=== PATIENT | male | born 1955 | race Caucasian/White ===

== ENCOUNTER 2020-11-24 19:09 | Inpatient (IN) | payer MEDICARE, OTHER ==
[~2020-11-24] VITALS: Ht 167.6 cm; Wt 65.8 kg
--- NOTE | 2020-11-24 19:28 | NUR ---
BIBRA FROM SNF TO ER BED 5. AWAKE BUT NON VERBAL. TACHYPNEIC. BED BOUND. BROUGHT IN FOR HYPOXIA. REPORTED @ 77% ON RA. PLACED N O2 VIA NON REBREATHER, SATTING @ 100%. PT IS NOTED WITH COLOSTOMY AND NEPHROSTOMY TUBE. PT ALSO HAVE DASILVA CATH. WAS AT THE BEDSIDE FOR EVAL. ORDERS RECEICVED, NOTED AND CARRIED OUT.
[2020-11-24] MEDS ORDERED: IV NS 0.9% 1,000 ML BAG IV ONE (19:30)
[2020-11-24 19:43] LABS: ABG BASE EXCESS -3.5 mmol/L; ABG OXYGEN SATURATION 98.7 % (92.0-98.5); ABG PCO2 39.7 mmHg (35.0-45.0); ABG PH 7.355 (7.350-7.450); ABG PO2 244.9 mmHg (75.0-100.0); AaDO2 428.4 mmHg; COHb 0.3 % (0.5-1.5); MetHb 0.5 % (0.0-1.5); O2Hb 97.9 % (94.0-97.0); SITE, ABG Left Radial; VENT MODE, BG NON REBREATHER
[2020-11-24 20:20] LABS: BASOPHILS # (AUTO) 0.1 /CMM (0.0-0.2); BASOPHILS % (AUTO) 0.7 % (0.0-2.0); EOSINOPHILS % (AUTO) 2.4 % (0.0-6.0); HEMATOCRIT 29 % (39-51); HEMOGLOBIN 9.3 g/dL (13.5-17.5); LYMPHOCYTES # (AUTO) 1.7 /CMM (0.8-4.8); LYMPHOCYTES % (AUTO) 13.6 % (20.0-44.0); MEAN CORPUSCULAR HGB CONC 32 g/dl (31.0-36.0); MEAN CORPUSCULAR VOLUME 86 fL (80-96); MONOCYTES # (AUTO) 0.5 /CMM (0.1-1.30); MONOCYTES % (AUTO) 4.4 % (2.0-12.0); NEUTROPHILS # (AUTO) 9.8 /CMM (1.8-8.9); NEUTROPHILS % (AUTO) 78.9 % (43.0-81.0); PLATELET COUNT (AUTO) 270 /CMM (150-450); RED BLOOD CELL COUNT(AUTO) 3.37 MIL/uL (4.5-6.0); WHITE BLOOD COUNT (AUTO) 12.5 K/uL (4.3-11.0)
[2020-11-24 20:29] LABS: CALCIUM, SERUM 8.3 mg/dL (8.5-10.1); POTASSIUM 3.4 mmol/L (3.5-5.1)
[2020-11-24 20:29] LABS: BILIRUBIN,URINE Negative (NEGATIVE); COLOR,URINE YELLOW (YELLOW); LEUKOCYTE ESTERASE ,URINE Trace (NEGATIVE); NITRITE, URINE Negative (NEGATIVE); PH,URINE 5.5 (5.0-8.0); PROTEIN,URINE 30 mg/dl (NEGATIVE); UGLUCOSE Negative (NEGATIVE); UROBILINOGEN,URINE 0.2 EU/dL (0.2)
[2020-11-24] MEDS ORDERED: VANCOMYCIN 1 GM in IV D5W 250 ML IV ONE (20:30)
[2020-11-24] MEDS ORDERED: PIPERACILLIN /TAZOBACTAM 3.375 G in IV D5W 50 ML IV ONE (20:30)
[2020-11-24] MEDS ORDERED: VANCOMYCIN 1 GM VIAL ONE (20:31)
[2020-11-24] MEDS ORDERED: PIPERACILLIN /TAZOBACTAM 3.375 G VIAL IV ONE (20:31)
[2020-11-24 20:35] LABS: ALBUMIN 2.4 g/dL (3.4-5.0); BILIRUBIN,DIRECT 0.1 mg/dL (0.0-0.2); BILIRUBIN,TOTAL 0.3 mg/dL (0.2-1.0); TOTAL PROTEIN, SERUM 7.6 g/dL (6.4-8.2)
[2020-11-24 20:49] LABS: BACTERIA,URINE 2+ /HPF (None Seen); MUCUS,URINE Few /LPF (None Seen); SQUAMOUS EPITHELIAL CELL,UR Few /HPF (None Seen); URINE AMORPHOUS URATE Moderate /HPF (None Seen); YEAST,URINE Moderate /HPF (None Seen)
[2020-11-24] MEDS ORDERED: IV NS 0.9% 250 ML IV ONE (21:12)
[2020-11-24] MEDS ORDERED: IOHEXOL-350 100 ML VIAL IV ONE (21:12)
--- NOTE | 2020-11-24 22:05 | NUR ---
Anoop chaudhry in ED - 11/24/20 at 2221 by VIRGILIO Pt transported to [facility] with emt and rn at bedside w/ acls protocol. nad noted during transport.
--- NOTE | 2020-11-24 22:10 | NUR ---
report mónica macias rn for ryann
--- NOTE | 2020-11-24 22:22 | NUR ---
Pt transported to unit on gurney with emt and rn at bedside w/ acls protocol. nad noted during transport.
[2020-11-25] VITALS (7 sets, daily range): BP systolic 112–132; BP diastolic 49–79
[2020-11-25] MEDS ORDERED: ONDANSETRON HCL/PF 4 MG/2 ML VIAL IVP PRN (00:30)
[2020-11-25] MEDS ORDERED: LEVALBUTEROL HCL NEB 1.25 MG/0.5 ML VIAL.NEB NEB PRN (00:30)
[2020-11-25] MEDS: FLUCONAZOLE IN NS 100 MG in PREMIX 1 EA IV SCH ×2 (00:30→23:15)
[2020-11-25] MEDS ORDERED: ROPI2TAB7 PO (00:50)
[2020-11-25] MEDS ORDERED: HYDR-4303 PO (00:50)
[2020-11-25] MEDS ORDERED: GABA100C PO (00:50)
[2020-11-25] MEDS ORDERED: OXCA150T5 PO (00:50)
[2020-11-25] MEDS ORDERED: BACL10TA PO (00:50)
[2020-11-25] MEDS ORDERED: SERT50TA PO (00:50)
[2020-11-25] MEDS ORDERED: QUET100T PO (00:50)
[2020-11-25] MEDS ORDERED: MELA3TAB41 PO (00:50)
[2020-11-25] MEDS ORDERED: TAMS-12 PO (00:50)
[2020-11-25] MEDS: ACETAMINOPHEN 650 MG/SUPP.RECT RC PRN ×2 (01:22→20:17)
[2020-11-25] MEDS ORDERED: FLUCONAZOLE IN NS 100 ML IV ONE (02:22)
[2020-11-25] MEDS ORDERED: PIPERACILLIN /TAZOBACTAM 3.375 G in IV D5W 50 ML IV ONE (05:00)
[2020-11-25] MEDS ORDERED: PIPERACILLIN /TAZOBACTAM 3.375 G in IV D5W 50 ML IV SCH (05:00)
[2020-11-25] MEDS ORDERED: PIPERACILLIN /TAZOBACTAM 3.375 G VIAL IV ONE (06:00)
--- NOTE | 2020-11-25 06:48 | NUR ---
RN notes Admitted a 65 yr old patient at about 21:30 via a stretcher accompanied 2 staff from ER. Alert, opens eyes with tracking but non verbal. Noted with flexion on both upper and lower extremities. Has a temperature of 101.3. Tylenol suppository administered, temp went down to 100.2. Cooling measures provided. O2 sat went down to 88%, deep suctioning initiated. Able to suctioned large amount of thick secretion. Kept clean and dry. Will endorse to next shift for continuity of care.
--- NOTE | 2020-11-25 07:45 | NUR ---
TELE/RN OPENING NOTES RECEIVED PATIENT IN BED ALERT AND NON-VERBAL. PATIENT IS ON 8L OXYGEN VIA FACIAL MASK WELL. NO SIGN AND SYMPTOM OF PAIN AT NOTED AT THIS TIME. TELE MONITOR READING SINUS TACHY 106 BPM. WILL CONTINUE TO MONITOR.
[2020-11-25] MEDS: PANTOPRAZOLE 40 MG VIAL IV SCH (08:57)
[2020-11-25] MEDS: VANCOMYCIN 0.75 GM in IV D5W 250 ML IV SCH ×3 (08:58→23:34)
--- NOTE | 2020-11-25 09:09 | NUR ---
WOUND CARE CONSULT: PT PRESENTS WITH STAGE 4 SACRAL ULCER, COLOSTOMY WITH SOME SKIN IRRITATION FROM LEAKAGE OF STOOL, AND RT LATERAL ANKLE AND GREAT TOE DRY WOUNDS, PRESENT ON ADMISSION. SURGICAL AND DPM CONSULTS CALLED TO DR FERRER AND DR LOBO. RECOMMENDATIONS MADE FOR SKIN PROTECTION. DISCUSSED WITH NURSING STAFF. FIRST STEP LOW AIRLOSS MATTRESS IS ON ORDER. MD IN AGREEMENT WITH PLAN OF CARE. Addendum: 11/25/20 at 0911 by CHEPE FRANCE WNDNU Amended: Links added.
[2020-11-25] MEDS: ENOXAPARIN SODIUM 40 MG/0.4 ML DISP.SYRIN SQ SCH (09:21)
[2020-11-25] MEDS ORDERED: Z GUARD REMEDY 2 OZ OINT TP PRN (09:30)
[2020-11-25] MEDS ORDERED: IV D5/ 0.9% NACL 1,000 ML IV PRN (10:30)
--- NOTE | 2020-11-25 10:36 | NUR ---
TELE/RN NOTES DR. DAY ORDER D5NS 1L IV AT 100ML/HOUR. NOTED AND CARRIED OUT.
[2020-11-25] MEDS: PIPERACILLIN /TAZOBACTAM 3.375 G in IV D5W 100 ML IV SCH ×2 (11:01→19:18)
[2020-11-25] MEDS: Z GUARD REMEDY 2 OZ OINT TP SCH (11:02)
[2020-11-25 15:04] LABS: BASOPHILS # (AUTO) 0.1 /CMM (0.0-0.2); BASOPHILS % (AUTO) 0.3 % (0.0-2.0); EOSINOPHILS % (AUTO) 0.1 % (0.0-6.0); HEMATOCRIT 31 % (39-51); HEMOGLOBIN 9.6 g/dL (13.5-17.5); LYMPHOCYTES # (AUTO) 2.3 /CMM (0.8-4.8); LYMPHOCYTES % (AUTO) 9.3 % (20.0-44.0); MEAN CORPUSCULAR HGB CONC 32 g/dl (31.0-36.0); MEAN CORPUSCULAR VOLUME 85 fL (80-96); MONOCYTES # (AUTO) 1.2 /CMM (0.1-1.30); NEUTROPHILS # (AUTO) 20.8 /CMM (1.8-8.9); NEUTROPHILS % (AUTO) 85.3 % (43.0-81.0); PLATELET COUNT (AUTO) 310 /CMM (150-450); RED BLOOD CELL COUNT(AUTO) 3.61 MIL/uL (4.5-6.0); WHITE BLOOD COUNT (AUTO) 24.4 K/uL (4.3-11.0)
[2020-11-25] MEDS: ACETYLCYSTEINE 10% SOLN 400 MG/4 ML VIAL NEB SCH ×2 (15:09→23:19)
--- NOTE | 2020-11-25 15:17 | NUR ---
CHARGE NURSE NOTES DR. DAY NOTIFIED OF CRITICAL RESULT MAGNESIUM 1.0. ORDERED 7 GRAMS IV [1GM PER HOUR].
[2020-11-25 15:18] LABS: ALBUMIN 2.4 g/dL (3.4-5.0); BILIRUBIN,TOTAL 0.4 mg/dL (0.2-1.0); CALCIUM, SERUM 8.3 mg/dL (8.5-10.1); PHOSPHORUS 3.2 mg/dL (2.5-4.9); POTASSIUM 3.1 mmol/L (3.5-5.1); TOTAL PROTEIN, SERUM 7.8 g/dL (6.4-8.2)
--- NOTE | 2020-11-25 15:31 | NUR ---
TELE/RN NOTES MAGNESIUM 1.0 DR. DAY WAS AWARE PER AGNES CHAIR CANER.
[2020-11-25] MEDS: Magnesium 1GM/D5W 100ML PREMIX 100 ML IV SCH ×5 (15:45→23:59)
[2020-11-25 15:55] LABS: THYROID STIMULATING HORMONE 1.366 uIU/mL (0.358-3.74)
[2020-11-25] MEDS: DAKINS QUARTER STRENGTH (0.125%) 480 ML BOTTLE TOP SCH (16:23)
--- NOTE | 2020-11-25 19:27 | NUR ---
MS/RN OPENING NOTES PATIENT IS ON BED ALERT AND NON-VERBAL. PATIENT IS ON 6L OXYGEN VIA MASK SATURATION 100%. PATIENT IN NO APPARENT RESPIRATORY DISTRESS NOTED. NO IN AND SYMPTOM OF PAIN AT THIS TIME. IV ACCESS AT LEFT UPPER ARM PICC LINE WITH IV FLUID OF D5NS 1L AT 100ML/HR ON AND INFUSING WELL. SEEN AND EXAMINED BY MD WITH ORDERS MADE AND CARRIED OUT. ALL DUE MEDICATIONS WAS GIVEN. SAFETY PRECAUTIONS WAS IN PLACED. BED IN LOWEST POSITION AND LOCKED. SIDERAILS UP X2. CALL LIGHT WITHIN REACH. WILL ENDORSED TO LOG RAFTER FOR CHRIS.
[2020-11-25] MEDS: Potassium Chloride 20 MEQ in IV D5/ 0.9% NACL 1,000 ML IV PRN (20:17)
--- NOTE | 2020-11-25 20:45 | NUR ---
telecommunications line installer notes Pts noted desaturating to 81% bp of 124/47 hr 107 rr 24 temp 101.3, rt at bedside pts was put on non rebreather mask at 15 liters . Pts is full code . rapid response called, spoke to Dr hoyt made aware of pts condition with order made and carried out ,do abg stat.will continue to monitor pts.
--- NOTE | 2020-11-25 20:59 | NUR ---
telegraph and teletype operator notes abg result 60.[address] hoyt with order to transfer pts to icu d/t pts needs intubation , Dr hoyt notified er Dr emir jain .Ed auricular therapist at pts bedside .made aware of patient condition.
[2020-11-25] MEDS ORDERED: MEROPENEM 500 MG in IV NS 0.9% 50 ML IV SCH (21:00)
[2020-11-25] MEDS ORDERED: MEROPENEM 1 G in IV NS 0.9% 100 ML IV ONE (21:00)
[2020-11-25 21:07] LABS: ABG BASE EXCESS -1.1 mmol/L; ABG OXYGEN SATURATION 96.2 % (92.0-98.5); ABG PCO2 60.4 mmHg (35.0-45.0); ABG PH 7.263 (7.350-7.450); ABG PO2 93.1 mmHg (75.0-100.0); AaDO2 559.5 mmHg; COHb 0.3 % (0.5-1.5); MetHb 0.3 % (0.0-1.5); O2Hb 95.6 % (94.0-97.0); SITE, ABG Right Radial; VENT MODE, BG Ambubag 15L
[2020-11-25] MEDS ORDERED: PROPOFOL 100 ML IV PRN (21:30)
--- NOTE | 2020-11-25 21:35 | NUR ---
NOTIFIED JOSE OF PT TRANSFER TO ICU AND UPDATE ON PT CONDITION. AT THIS TIME, WISHES PT TO REMAIN FULL CODE.
--- NOTE | 2020-11-25 21:36 | NUR ---
RN NOTE PT NOTED TO BE DESATURATING, ON SIMPLE MASK 6L. O2 SAT DROPPING TO HIGH 50s. RAPID RESPONSE CALLED. RTs AT BEDSIDE. ED MD, VICENTE LOCKHART AT BEDSIDE TO ORALLY INTUBATE PT. ICU PASTER OPERATOR AT BEDSIDE. GLUCOSE TAKEN 100 BLOOD SUGAR RESULT. NOTIFIED REGIONAL PROGRAM MANAGER DR BLACK. PT TO BE TRANSFERRED TO ICU.
--- NOTE | 2020-11-25 21:58 | NUR ---
TRANSFER TO ICU REPORT GIVEN TO ED, DYE EXPERT FOR CONTINUATION OF CARE
--- NOTE | 2020-11-25 22:10 | NUR ---
RT PT PLACED ON [facility] VENT WITH NOTED SETTING POST INTUBATION DUE CRITICAL ABG LEVELS. PT INTUBATED WITH 7.0 EET @ 24CM AT LIP. POSITIVE CO2 COLOR CHANGE AND BILATERAL BREATH SOUNDS NOTED. PT TOLERATING SETTING WELL. NO SOB OR DISTRESS NOTED. ALARMS SET AND AUDIBLE. VENTS TO RED OUTLET. AMBU BAG AT [facility]. Addendum: 11/25/20 at 2219 by ALE JASSO RT Amended: Links added.
--- NOTE | 2020-11-25 22:20 | NUR ---
SHAFT REPAIRER RCD PT FROM SURVEY OPERATIONS DIRECTOR ED. PT ADMITTED W/DX RESP FAILURE; SEPSIS. PT INTUBATED 7 @ 25 W/VENT SETTINGS AC 20 450 100% +5. PT HAS LARGE AMOUNT OF THIN WHITE SECRETION. PT AWAKE HOWEVER NOT NOTED TO BE TACHYPNEIC OF ATTEMPTING TO SELF EXTUBATE; PT HAS ABNORMAL FLEXION TO BUE. RESTRAINTS REMOVED. NO INDICATION FOR PROPOFOL AT THIS TIME. APPLIED MEPILEX TO RIGHT BIG TOE AND ANKLE. SACRAL DRESSING NOTED WITH SOME REDDISH DRAINAGE ON PAD. PT WITH MULTIPLE MAGNESIUM AND ANTIBIOTIC TO BE GIVEN TONIGHT. PT PENDING FOR NEW MIDLINE PLACEMENT MIDLINE IN PLACE HAS NO BLOOD RETURN AND UNABLE TO FLUSH ONE PORT.
[2020-11-25] MEDS: IV NS 0.9% 250 ML IV PRN (22:50)
--- NOTE | 2020-11-25 23:34 | NUR ---
BIOINFORMATICS ASSISTANT NON ADMIN VANCO PER VANCO TROUGH LEVEL 27.
--- NOTE | 2020-11-25 23:40 | NUR ---
ANESTHESIOLOGY MEDICAL DOCTOR FI O2 DECREASED TO 70% BY RT AFTER ABG RESULSTS; PH 7.372 PO2 192.3 PCO2 43.9 AND HCO3 24.9.
[2020-11-25 23:43] LABS: ABG BASE EXCESS -0.4 mmol/L; ABG OXYGEN SATURATION 99.2 % (92.0-98.5); ABG PCO2 43.9 mmHg (35.0-45.0); ABG PH 7.372 (7.350-7.450); ABG PO2 192.3 mmHg (75.0-100.0); AaDO2 476.8 mmHg; COHb 0.3 % (0.5-1.5); MetHb 0.2 % (0.0-1.5); O2Hb 98.7 % (94.0-97.0); PEEP,BG 5 cm H2O; SITE, ABG Right Brachial; VENT MODE, BG AC 20/450/100/+5; VT, ABG 450 mL
[2020-11-26] VITALS (49 sets, daily range): BP systolic 85–119; BP diastolic 39–67
[2020-11-26] MEDS: Magnesium 1GM/D5W 100ML PREMIX 100 ML IV SCH ×3 (00:59→02:06)
[2020-11-26] MEDS: MEROPENEM 1 G in IV NS 0.9% 100 ML IV SCH ×3 (04:00→20:09)
[2020-11-26 05:06] LABS: BASOPHILS # (AUTO) 0.1 /CMM (0.0-0.2); BASOPHILS % (AUTO) 0.3 % (0.0-2.0); HEMATOCRIT 30 % (39-51); LYMPHOCYTES # (AUTO) 1.7 /CMM (0.8-4.8); LYMPHOCYTES % (AUTO) 7.3 % (20.0-44.0); MEAN CORPUSCULAR HGB CONC 33 g/dl (31.0-36.0); MEAN CORPUSCULAR VOLUME 84 fL (80-96); MONOCYTES # (AUTO) 1.3 /CMM (0.1-1.30); MONOCYTES % (AUTO) 5.6 % (2.0-12.0); NEUTROPHILS # (AUTO) 19.5 /CMM (1.8-8.9); NEUTROPHILS % (AUTO) 86.8 % (43.0-81.0); PLATELET COUNT (AUTO) 272 /CMM (150-450); RED BLOOD CELL COUNT(AUTO) 3.62 MIL/uL (4.5-6.0); WHITE BLOOD COUNT (AUTO) 22.5 K/uL (4.3-11.0)
[2020-11-26 05:30] LABS: CALCIUM, SERUM 8.2 mg/dL (8.5-10.1); CREATININE 1.2 mg/dL (0.6-1.3); MAGNESIUM 2.2 mg/dL (1.8-2.4); PHOSPHORUS 2.9 mg/dL (2.5-4.9)
--- NOTE | 2020-11-26 07:05 | NUR ---
RN NOTES RECEIVED PT ON BED, INTUBATED, CLAM AND COOPERATIVE , NO DISTRESS NOTED , OPENS EYES TO VERBAL COMMAND, ET TUBE CARE DONE, ON TELE SR HR IN 80'S .DASILVA DRAINING TO GRAVITY, IVF AT 70CC/HR RUNNING, SR UP x3, CALL LIGHT WITHIN EASY REACH, BED LOCKED AND IN LOWEST POSITION, CONTINUE TO MONITOR .
[2020-11-26] MEDS: ACETYLCYSTEINE 10% SOLN 400 MG/4 ML VIAL NEB SCH ×3 (07:49→23:21)
[2020-11-26] MEDS: VANCOMYCIN 0.75 GM in IV D5W 250 ML IV SCH ×2 (08:00→17:10)
[2020-11-26] MEDS: PANTOPRAZOLE 40 MG VIAL IV SCH (08:07)
[2020-11-26] MEDS: ENOXAPARIN SODIUM 40 MG/0.4 ML DISP.SYRIN SQ SCH (08:10)
[2020-11-26] MEDS: DAKINS QUARTER STRENGTH (0.125%) 480 ML BOTTLE TOP SCH (08:11)
[2020-11-26] MEDS: Z GUARD REMEDY 2 OZ OINT TP SCH (08:12)
[2020-11-26] MEDS ORDERED: VECURONIUM 10 MG VIAL IV ONE (10:26)
[2020-11-26] MEDS ORDERED: FEE EMEERGENCY 1 MIN EA MC ONE (10:26)
[2020-11-26] MEDS ORDERED: ETOMIDATE 2 MG/ML VIAL IV ONE (10:26)
[2020-11-26] MEDS ORDERED: POTASSIUM CHLORIDE 20 MEQ POWDER PACKET PO ONE (11:00)
[2020-11-26] MEDS: IPRATROPIUM NEB FS 0.5 MG/2.5 ML AMPUL.NEB NEB SCH ×4 (11:30→23:21)
[2020-11-26] MEDS: ALBUTEROL HALF STRENGTH 1.25 MG/3 ML VIAL.NEB NEB SCH ×4 (11:30→23:21)
--- NOTE | 2020-11-26 12:00 | NUR ---
RN NOTES PT CALM AND COOPERATIVE, ET CARE DONE, CONTINUE TO MONITOR .
[2020-11-26] MEDS: FLUCONAZOLE IN NS 100 MG in PREMIX 1 EA IV SCH (13:11)
[2020-11-26] MEDS: Potassium Chloride 20 MEQ in IV D5/ 0.9% NACL 1,000 ML IV PRN (13:13)
[2020-11-26] MEDS ORDERED: VANCOMYCIN 0.75 GM in IV D5W 250 ML IV SCH (16:00)
--- NOTE | 2020-11-26 18:00 | NUR ---
RN NOTES PT REMAINS INTUBATED , TOLERAING VENT SETTING WELL, O2 SAT WNL, FOLLOW SIMPLE COMMAND AT TIMES, IVF AT 70CC/HR RUNNING, SR UP x3, CALL LIGHT WITHIN EASY REACH, BED LOCKED AND IN LOWEST POSITION, WILL ENDOSE TO OPERATION AGENT NURSE FOR CONTINUITY OF CARE .
--- NOTE | 2020-11-26 18:16 | NUR ---
RT end of the shift report, Pt. 65 y old Male rec. orally intubated beginning of the shift. ( ETT # 7.0 @ 24 cm lip line ) on Vent with noted ( AC, RR 20, VT 450, FIO2 50%, PEEP +5 ) settings, alarms are set and functional. equal chest rise noted, vent plugged into red outlet, Ambu bag remain at the bedside. B/s bilaterally rales, sux'd for small amt. of white secretions, new tx's added and given inline no adverse reaction noted. Per Dr. Holland at the bedside. Possibly will try weaning anh. per Dr. Holland. HME changed, TEST MANAGER done, pt. remain stable and continue to monitor. reporet will pass to PM shift. Addendum: 11/26/20 at 1822 by ELIUD LEAL RT Amended: Links added.
--- NOTE | 2020-11-26 19:05 | NUR ---
RECEIVED PT ON BED AWAKE, EYES OPEN, INTUBATED WITHH ETT 7/24 CM,WITH VENT SETTING ORDER FIO2 40% SPO2 98% TOLERATING WELL NO SIGN AND SYMPTOMS OF RESPIRATORY DISTRESS, CAN ANSWER YES/NO ON SIMPLE QUESTION, PT IS CONTRACTED, ON BEDSIDE MONITOR READS SINUS RHYTHM 80-90 HAVE LAHAND # 24 AND LEFT EJ 24 PATENT AND FLUSHED HAVE LEFT UPPER ARM MIDLINE ON PORT OCCLUDED ONE IS PATENT AND FLUSHED, WITH ONGOING D5NS+20 MEQ KCL RUNNING@ 70ML/HR INFUSING WELL, BED AT LOWEST POSITION AND LOCKED SIDE RAILS UP X2 CALL LIGHT WITHIN REACH WILL CONT TO MONITOR Addendum: 11/26/20 at 1942 by WILBER SARMIENTO RN PT HAVE DASILVA CATHETER DRAINING WITH YELLOW URINE VIA GRAVITY AND COLOSTOMY BAG
--- NOTE | 2020-11-26 19:25 | NUR ---
RT Pt received orally intubated on mechanical ventilation with noted settings. Vent is plugged into red outlet with BVM by bedside. Alarms are set and audible. Equal bilateral breath sounds and chest rise noted. No SOB or respiratory distress noted at this time. Addendum: 11/26/20 at 1953 by KAYODE MALLORY RT Amended: Links added.
--- NOTE | 2020-11-26 20:23 | NUR ---
RT ET tube advanced 2cm per Dr. Holland orders. ET tube is now at 26cm at the lip line. Equal bilateral breath sounds and chest rise noted. No SOB or respiratory distress noted. RN notified and aware. Addendum: 11/26/20 at 2025 by KAYODE MALLORY RT Amended: Links added.
[2020-11-27] VITALS (43 sets, daily range): BP systolic 85–144; BP diastolic 41–87
--- NOTE | 2020-11-27 00:16 | NUR ---
REPORTED TO ONCALL DR BLACK ABOUT THE LOW URINE OUTPUT OF THE PT SINCE 1899 WITH ORDER TO GIVE NS 500ML X1 THEN AFTER THE BOLUS GIVE BUMEX 1 MG IV X 1 NOTED AND CARRIED OUT
[2020-11-27] MEDS ORDERED: BUMETANIDE INJ 0.25 MG/ML VIAL IV ONE (00:30)
[2020-11-27] MEDS ORDERED: IV NS 0.9% 500 ML IV ONE (00:30)
[2020-11-27] MEDS: ALBUTEROL HALF STRENGTH 1.25 MG/3 ML VIAL.NEB NEB SCH ×7 (03:05→23:30)
[2020-11-27] MEDS: IPRATROPIUM NEB FS 0.5 MG/2.5 ML AMPUL.NEB NEB SCH ×7 (03:05→23:30)
[2020-11-27] MEDS: ACETAMINOPHEN 650 MG/SUPP.RECT RC PRN (03:41)
[2020-11-27] MEDS: Potassium Chloride 20 MEQ in IV D5/ 0.9% NACL 1,000 ML IV PRN ×2 (04:31→17:30)
[2020-11-27] MEDS: MEROPENEM 1 G in IV NS 0.9% 100 ML IV SCH ×3 (04:31→20:30)
[2020-11-27 04:50] LABS: BASOPHILS % (AUTO) 0.3 % (0.0-2.0); EOSINOPHILS % (AUTO) 0.3 % (0.0-6.0); HEMATOCRIT 22 % (39-51); HEMOGLOBIN 7.3 g/dL (13.5-17.5); LYMPHOCYTES # (AUTO) 1.2 /CMM (0.8-4.8); LYMPHOCYTES % (AUTO) 8.8 % (20.0-44.0); MEAN CORPUSCULAR HGB CONC 33 g/dl (31.0-36.0); MEAN CORPUSCULAR VOLUME 83 fL (80-96); MONOCYTES # (AUTO) 0.8 /CMM (0.1-1.30); MONOCYTES % (AUTO) 5.7 % (2.0-12.0); NEUTROPHILS % (AUTO) 84.9 % (43.0-81.0); PLATELET COUNT (AUTO) 247 /CMM (150-450); RED BLOOD CELL COUNT(AUTO) 2.65 MIL/uL (4.5-6.0); WHITE BLOOD COUNT (AUTO) 14.2 K/uL (4.3-11.0)
[2020-11-27 05:09] LABS: CALCIUM, SERUM 8.3 mg/dL (8.5-10.1); CREATININE 1.2 mg/dL (0.6-1.3); PHOSPHORUS 2.3 mg/dL (2.5-4.9)
[2020-11-27 05:18] LABS: POTASSIUM 2.5 mmol/L (3.5-5.1)
--- NOTE | 2020-11-27 05:30 | NUR ---
REPORTED TO DR. BLACK ABOUT THE CRITICAL LAB K+ 2.5 WITH ORDER OF 40MEQ KCL VIA NGTUBE + 20 MEQ KCL IV NOTED AND CARRIED OUT
[2020-11-27] MEDS ORDERED: POTASSIUM CHLORIDE 20 MEQ POWDER PACKET GT SCH ×2 (06:00)
[2020-11-27] MEDS: POTASSIUM CL. PREMIX PERIPHER. 50 ML IV SCH ×2 (06:02→07:02)
[2020-11-27] MEDS ORDERED: POTASSIUM CHLORIDE 20 MEQ POWDER PACKET GT ONE (06:30)
--- NOTE | 2020-11-27 06:49 | NUR ---
LATEST TEMP IS 99.2,
--- NOTE | 2020-11-27 07:30 | NUR ---
RN OPENING NOTES RECEIVED PATIENT AWAKE ALERT AND FOLLOWS INSTRUCTIONS. ORALLY INTUBATED WITH MECHVENT SETTINGS OF AC 20 TV 450 FIO2 40% PEEP 5. OGT IN PLACE. NSR ON TELE MONITOR. COLOSTOMY NOTED AND DASILVA DRAINING BY GRAVITY. LEFT MIDLINE WITH D5NS+20KCL AT 70ML/HR, PERIPHERAL LINES INTACT WITH 10MEQ KCL AT 50ML/HR AT LEFT HAND. SAFETY CHECKS IN PLACE. WILL CONTINUE TO MONITOR.
[2020-11-27] MEDS ORDERED: DC PROPOFOL WHEN EXTUBATED XX PRN (08:00)
[2020-11-27] MEDS: ACETYLCYSTEINE 10% SOLN 400 MG/4 ML VIAL NEB SCH (08:06)
[2020-11-27] MEDS: DAKINS QUARTER STRENGTH (0.125%) 480 ML BOTTLE TOP SCH (08:09)
[2020-11-27] MEDS: PANTOPRAZOLE 40 MG VIAL IV SCH (08:09)
[2020-11-27] MEDS: Z GUARD REMEDY 2 OZ OINT TP SCH (08:09)
[2020-11-27] MEDS: ENOXAPARIN SODIUM 40 MG/0.4 ML DISP.SYRIN SQ SCH (08:12)
[2020-11-27] MEDS: ACETAMINOPHEN 650 MG/20.3 ML UDC NG PRN (09:10)
[2020-11-27 09:40] LABS: PEEP,BG 5 cm H2O; SITE, ABG Left Radial
[2020-11-27 10:08] LABS: ABG BASE EXCESS -1.9 mmol/L; ABG OXYGEN SATURATION 89.5 % (92.0-98.5); ABG PCO2 30.4 mmHg (35.0-45.0); ABG PH 7.465 (7.350-7.450); ABG PO2 54.7 mmHg (75.0-100.0); AaDO2 123.5 mmHg; COHb 0.2 % (0.5-1.5); MetHb 0.2 % (0.0-1.5); O2Hb 89.1 % (94.0-97.0); VT, ABG 500 mL
--- NOTE | 2020-11-27 11:35 | NUR ---
RN NOTE PATIENT WAS EXTUBATED. NO STRIDOR, NIT IN ANY RESPIRATORY DISTRESS. PLACED ON 4L NC SATURATING 100%.
[2020-11-27] MEDS: POTASSIUM PHOSPHATE MM 7.5 MMOL in IV NS 0.9% 100 ML IV SCH ×2 (12:02→15:28)
[2020-11-27 12:23] LABS: BASOPHILS # (AUTO) 0.1 /CMM (0.0-0.2); BASOPHILS % (AUTO) 0.6 % (0.0-2.0); EOSINOPHILS % (AUTO) 0.7 % (0.0-6.0); HEMATOCRIT 21 % (39-51); HEMOGLOBIN 7.1 g/dL (13.5-17.5); LYMPHOCYTES # (AUTO) 1.4 /CMM (0.8-4.8); LYMPHOCYTES % (AUTO) 9.8 % (20.0-44.0); MEAN CORPUSCULAR HGB CONC 33 g/dl (31.0-36.0); MEAN CORPUSCULAR VOLUME 83 fL (80-96); MONOCYTES # (AUTO) 0.9 /CMM (0.1-1.30); MONOCYTES % (AUTO) 6.2 % (2.0-12.0); NEUTROPHILS # (AUTO) 11.5 /CMM (1.8-8.9); NEUTROPHILS % (AUTO) 82.7 % (43.0-81.0); PLATELET COUNT (AUTO) 241 /CMM (150-450); RED BLOOD CELL COUNT(AUTO) 2.58 MIL/uL (4.5-6.0); WHITE BLOOD COUNT (AUTO) 13.9 K/uL (4.3-11.0)
[2020-11-27] MEDS: FLUCONAZOLE IN NS 100 MG in PREMIX 1 EA IV SCH (13:54)
--- NOTE | 2020-11-27 15:08 | NUR ---
RT note shift report, Pt. 65 Y old Male rec. orally intubated beginning of the AM shift. ( ETT # 7.0 @ 26 cm lip line ) HME changed, RADIATOR CLEANER done, pt. remain stable and continue to monitor. on Vent with noted ( AC, RR 20, VT 450, FIO2 50%, PEEP +5 ) settings, alarms are set and functional. equal chest rise noted, vent plugged into red outlet, Ambu bag remain at the bedside. B/s bilaterally rales, Sux'd for mod. amt. of white thin secretions, @[address] Nino at the bedside. x2 RT & RN @bedside Pt. extubated and placed on 4l/min n/c spo2 100% no stridor noted and pt. speaks and no sign of distress nor complain of pain. MM tx's d/c and Albu+Atro Tx's hold per Dr. Nino until PCR clearance, report will pass to PM shift. Addendum: 11/27/20 at 1511 by ELIUD LEAL RT Amended: Links added. Addendum: 11/27/20 at 1819 by ELIUD LEAL RT (( AT 0806 AM PT.PLACED ON SIMV WEANING MODE PER DR. NINO POST ABG DONE RESULTS GIVEN TO DR. NINO ))
--- NOTE | 2020-11-27 15:30 | NUR ---
RN NOTE RIGHT MIDLINE PLACED BY TATIANA HARRISON AND HE MENTIONED LEFT MIDLINE CAN BE REMOVED ON PT DISCHARGE WHILE KEEPING THE RIGHT MIDLINE. LEFT IJ PERIPHERAL LINE REMOVED.
[2020-11-27] MEDS: VANCOMYCIN 0.75 GM in IV D5W 250 ML IV SCH (17:29)
--- NOTE | 2020-11-27 18:53 | NUR ---
RN CLOSING NOTES PATIENT IS A&0 X2. SATURATING 99% ON 4L NC. NOT IN ANY RESPIRATORY DISTRESS. NSR 80 ON TELE MONITOR. EMPTIED 150MLS FROM COLOSTOMY AND DASILVA DRAINED 500MLS BY GRAVITY. RIGHT MIDLINE WITH D5NS+20KCL AT 70ML/HR, LEFT MIDLINE WITH TKO IN PROGRESS. SAFETY CHECKS IN PLACE. WILL ENDORSE TO NIGHT RN FOR CONTINUITY OF CARE.
[2020-11-27] MEDS: IV NS 0.9% 250 ML IV PRN (20:30)
--- NOTE | 2020-11-27 23:57 | NUR ---
RT Notes Pt received on nasal cannula on 4LPM O2. Albu+Atro Tx's on hold per Dr. Holland until PCR results. No signs of resp distress/SOB noted.
[2020-11-28] VITALS (21 sets, daily range): BP systolic 123–154; BP diastolic 46–78
[2020-11-28] MEDS: IPRATROPIUM NEB FS 0.5 MG/2.5 ML AMPUL.NEB NEB SCH ×6 (03:30→23:29)
[2020-11-28] MEDS: ALBUTEROL HALF STRENGTH 1.25 MG/3 ML VIAL.NEB NEB SCH ×6 (03:30→23:29)
[2020-11-28] MEDS: MEROPENEM 1 G in IV NS 0.9% 100 ML IV SCH ×3 (04:00→23:46)
[2020-11-28 04:19] LABS: BASOPHILS # (AUTO) 0.1 /CMM (0.0-0.2); BASOPHILS % (AUTO) 0.9 % (0.0-2.0); EOSINOPHILS % (AUTO) 2.1 % (0.0-6.0); HEMATOCRIT 23 % (39-51); HEMOGLOBIN 7.4 g/dL (13.5-17.5); LYMPHOCYTES # (AUTO) 1.8 /CMM (0.8-4.8); LYMPHOCYTES % (AUTO) 13.9 % (20.0-44.0); MEAN CORPUSCULAR HGB CONC 33 g/dl (31.0-36.0); MEAN CORPUSCULAR VOLUME 84 fL (80-96); MONOCYTES # (AUTO) 0.8 /CMM (0.1-1.30); MONOCYTES % (AUTO) 6.6 % (2.0-12.0); NEUTROPHILS # (AUTO) 9.8 /CMM (1.8-8.9); NEUTROPHILS % (AUTO) 76.5 % (43.0-81.0); PLATELET COUNT (AUTO) 242 /CMM (150-450); RED BLOOD CELL COUNT(AUTO) 2.67 MIL/uL (4.5-6.0); WHITE BLOOD COUNT (AUTO) 12.8 K/uL (4.3-11.0)
[2020-11-28 04:33] LABS: CALCIUM, SERUM 8.4 mg/dL (8.5-10.1); CREATININE 1.1 mg/dL (0.6-1.3); MAGNESIUM 1.7 mg/dL (1.8-2.4); PHOSPHORUS 2.7 mg/dL (2.5-4.9); POTASSIUM 3.4 mmol/L (3.5-5.1)
--- NOTE | 2020-11-28 07:35 | NUR ---
RN OPENING NOTES RECEIVED PATIENT AWAKE ALERT AND FOLLOWS INSTRUCTIONS. NOT IN ANY RESPIRATORY DISTRESS AND SATURATING 99% ON 4L NC. NSR 88 ON TELE MONITOR. COLOSTOMY NOTED AND DASILVA DRAINING BY GRAVITY. RIGHT MIDLINE WITH D5NS+20KCL AT 70ML/HR, LEFT MIDLINE WITH VICTORINO IN PROGRESS AND PERIPHERAL LINE AT LEFT HAND. REPOSITIONED FOR COMFORT. SAFETY CHECKS IN PLACE. WILL CONTINUE TO MONITOR.
[2020-11-28] MEDS: PANTOPRAZOLE 40 MG VIAL IV SCH (08:04)
[2020-11-28] MEDS: Z GUARD REMEDY 2 OZ OINT TP SCH (08:05)
[2020-11-28] MEDS: DAKINS QUARTER STRENGTH (0.125%) 480 ML BOTTLE TOP SCH (08:05)
[2020-11-28] MEDS: Potassium Chloride 20 MEQ in IV D5/ 0.9% NACL 1,000 ML IV PRN ×2 (09:34→23:47)
--- NOTE | 2020-11-28 10:00 | NUR ---
RN NOTE PATIENT MAY HAVE PUREED DIET WITH NECTAR THICK LIQUIDS PER SPEECH THERAPIST.
--- NOTE | 2020-11-28 10:45 | NUR ---
RN NOTE CONFIRMED WITH [facility] ([id number]) THAT FLU VACCINE WAS RECEIVED BY PATIENT AT THEIR FACILITY ON 03/29/2020; AND MODERNA COVID 19 VACCINE WAS ADMINISTERED ON 06/21/2020 FIRST DOSE, AND 07/15/2020 SECOND DOSE. NO RECORDS TO SHOW AT THE FACILITY WHETHER PNEUMONIA VACCINE WAS GIVEN NOR WAS OFFERED.
[2020-11-28] MEDS: Magnesium 1GM/D5W 100ML PREMIX 100 ML IV SCH ×2 (10:53→12:01)
[2020-11-28] MEDS: ACETAMINOPHEN 650 MG/20.3 ML UDC NG PRN (12:04)
[2020-11-28] MEDS: FLUCONAZOLE IN NS 100 MG in PREMIX 1 EA IV SCH (12:55)
[2020-11-28] MEDS: PROSOURCE / PROSTAT (PYXIS) 30 ML UDC PO SCH ×2 (13:30→17:00)
[2020-11-28] MEDS: VANCOMYCIN 0.75 GM in IV D5W 250 ML IV SCH (17:06)
--- NOTE | 2020-11-28 18:54 | NUR ---
RN CLOSING NOTES PATIENT IS AWAKE ALERT AND DISORIENTED. EPISODES OF VISUAL AND AUDITORY HALLUCINATIONS. NOT IN ANY RESPIRATORY DISTRESS AND SATURATING 100% ON 4L NC. NSR 91 ON TELE MONITOR. COLOSTOMY EMPTIED 100MLS AND DASILVA DRAINED 900MLS BY GRAVITY. RIGHT MIDLINE WITH D5NS+20KCL AT 70ML/HR, LEFT MIDLINE AND PERIPHERAL LINE AT LEFT HAND IN PLACE. REPOSITIONED HIGH BACK REST. SAFETY CHECKS IN PLACE. WILL ENDORSE TO NIGHT RN FOR CONTINUITY OF CARE.
[2020-11-28] MEDS ORDERED: ALBUTEROL HALF STRENGTH 1.25 MG/3 ML VIAL.NEB ONE (19:41)
[2020-11-28] MEDS ORDERED: IPRATROPIUM NEB FS 0.5 MG/2.5 ML AMPUL.NEB ONE (19:41)
--- NOTE | 2020-11-28 23:01 | NUR ---
RT stock neb med non admin. pt in room but unable to access med from omni cell. overrode omni cell to access neb med. administered med during scheduled treatment
--- NOTE | 2020-11-28 23:28 | NUR ---
RT pt refused tx. notified evaristo, charge nurse
[2020-11-29] VITALS: BP 129/57
[2020-11-29 04:00] VITALS: BP 136/53
[2020-11-29] MEDS: IPRATROPIUM NEB FS 0.5 MG/2.5 ML AMPUL.NEB NEB SCH ×4 (04:01→15:30)
[2020-11-29] MEDS: ALBUTEROL HALF STRENGTH 1.25 MG/3 ML VIAL.NEB NEB SCH ×4 (04:01→15:30)
[2020-11-29] MEDS: MEROPENEM 1 G in IV NS 0.9% 100 ML IV SCH ×2 (05:56→13:10)
--- NOTE | 2020-11-29 06:45 | NUR ---
patient has colostomy had 75cc out colostomy incon.x1 large stool green and formed.
--- NOTE | 2020-11-29 07:20 | NUR ---
RN OPENING NOTES RECEIVED PT IN BED. AWAKE, A/O X1. ON 4L OXYGEN, O2 SAT @100%. NO SOB OR ANY S/S OF RESPIRATORY DISTRESS NOTED. SR ON TELE MONITOR. COLOSTOMY BAG AND DASILVA CATH IN PLACE. ON PUREED DIET. IV ACCESS BOTH INTACT, PATENT AND FLUSHED. D5NS + 20KCL @70MLS/HR INFUSING WELL. NO PAIN REPORTED AT THIS TIME. SACRAL WOUND NOTED, DRESSINGS DRY AND INTACT. SAFETY MEASURES IN PLACE. CALL LIGHT WITHIN REACH. BED LOCKED AND IN LOWEST POSITION WITH SIDE RAILS UP X3. HOB ELEVATED. WILL CONTINUE TO MONITOR.
[2020-11-29 08:00] VITALS: BP 142/55
[2020-11-29] MEDS: PANTOPRAZOLE 40 MG VIAL IV SCH (08:35)
[2020-11-29] MEDS: PROSOURCE / PROSTAT (PYXIS) 30 ML UDC PO SCH ×2 (08:35→13:06)
[2020-11-29] MEDS: Z GUARD REMEDY 2 OZ OINT TP SCH (08:36)
[2020-11-29] MEDS: DAKINS QUARTER STRENGTH (0.125%) 480 ML BOTTLE TOP SCH (08:36)
[2020-11-29 12:00] VITALS: BP 115/52
[2020-11-29 12:14] LABS: BASOPHILS # (AUTO) 0.1 /CMM (0.0-0.2); BASOPHILS % (AUTO) 0.8 % (0.0-2.0); EOSINOPHILS % (AUTO) 2.3 % (0.0-6.0); HEMATOCRIT 23 % (39-51); HEMOGLOBIN 7.7 g/dL (13.5-17.5); LYMPHOCYTES # (AUTO) 1.7 /CMM (0.8-4.8); LYMPHOCYTES % (AUTO) 18.9 % (20.0-44.0); MEAN CORPUSCULAR HGB CONC 33 g/dl (31.0-36.0); MEAN CORPUSCULAR VOLUME 85 fL (80-96); MONOCYTES # (AUTO) 0.7 /CMM (0.1-1.30); MONOCYTES % (AUTO) 8.4 % (2.0-12.0); NEUTROPHILS # (AUTO) 6.1 /CMM (1.8-8.9); NEUTROPHILS % (AUTO) 69.6 % (43.0-81.0); PLATELET COUNT (AUTO) 257 /CMM (150-450); RED BLOOD CELL COUNT(AUTO) 2.74 MIL/uL (4.5-6.0); WHITE BLOOD COUNT (AUTO) 8.7 K/uL (4.3-11.0)
[2020-11-29 12:46] LABS: MAGNESIUM 1.6 mg/dL (1.8-2.4); PHOSPHORUS 2.4 mg/dL (2.5-4.9); POTASSIUM 2.9 mmol/L (3.5-5.1)
[2020-11-29] MEDS: Potassium Chloride 20 MEQ in IV D5/ 0.9% NACL 1,000 ML IV PRN (13:11)
[2020-11-29] MEDS: FLUCONAZOLE IN NS 100 MG in PREMIX 1 EA IV SCH (13:38)
[2020-11-29 16:00] VITALS: BP 132/65
[2020-11-29] MEDS ORDERED: K PHOS NEUTRAL 250 MG TABLET PO ONE (17:30)
--- NOTE | 2020-11-29 17:30 | NUR ---
RN CLOSING NOTES PT DISCHARGED TO [facility]. REPORT GIVEN TO MANNY BANKS. IV ACCESS TO BE MAINTAINED. COLOSTOMY AND DASILVA CATH IN PLACE. FLU VACCINE IS UP TO DATE. PICTURES OF WOUND TAKEN AND PLACED IN CHART. PT IS CONFUSED, UNABLE TO VERBALIZE UNDERSTANDING FOR DISCHARGE INSTRUCTIONS. VS WNL. NO SOB OR ANY DISTRESS. DENIES ANY PAIN. ACCOMPANIED BY AMBULANCE CREW BACK TO [facility].
== END 2020-11-29 18:12 | DRG 871 ==
LOC: ER 19:12 → TELE1 21:43 → ICU 11-25 21:51 → TELE-TD 11-28 19:52 → TELE1 11-29 08:04
PROVIDERS: ADMIT Internal Medicine
PROC: 5A1945Z Respiratory Ventilation, 24-96 Consecutive Hours (ICD-10-PCS; principal; 2020-11-25)
PROC: 0BH18EZ Insertion of Endotracheal Airway into Trachea, Via Natural or Artificial Opening Endoscopic (ICD-10-PCS; 2020-11-25)
PROC: 05H533Z Insertion of Infusion Device into Right Subclavian Vein, Percutaneous Approach (ICD-10-PCS; 2020-11-27)
PROC: B546ZZA Ultrasonography of Right Subclavian Vein, Guidance (ICD-10-PCS; 2020-11-27)
DX: A41.9 Sepsis, unspecified organism (principal); L89.154 Pressure ulcer of sacral region, stage 4; E43 Unspecified severe protein-calorie malnutrition; G92 Toxic encephalopathy; J96.02 Acute respiratory failure with hypercapnia; J96.01 Acute respiratory failure with hypoxia; R53.2 Functional quadriplegia; J18.9 Pneumonia, unspecified organism; D68.59 Other primary thrombophilia; B37.49 Other urogenital candidiasis; J44.0 Chronic obstructive pulmonary disease with (acute) lower respiratory infection; K94.03 Colostomy malfunction; G20 Parkinson's disease; I10 Essential (primary) hypertension; M19.019 Primary osteoarthritis, unspecified shoulder; D64.9 Anemia, unspecified; E87.6 Hypokalemia; Z86.73 Personal history of transient ischemic attack (TIA), and cerebral infarction without residual deficits; N40.0 Benign prostatic hyperplasia without lower urinary tract symptoms; F09 Unspecified mental disorder due to known physiological condition; F20.9 Schizophrenia, unspecified; G90.09 Other idiopathic peripheral autonomic neuropathy; Z20.822 Contact with and (suspected) exposure to COVID-19; R65.20 Severe sepsis without septic shock; G90.9 Disorder of the autonomic nervous system, unspecified; Z68.23 Body mass index [BMI] 23.0-23.9, adult; N40.1 Benign prostatic hyperplasia with lower urinary tract symptoms; L89.526 Pressure-induced deep tissue damage of left ankle; L89.896 Pressure-induced deep tissue damage of other site; L98.8 Other specified disorders of the skin and subcutaneous tissue; M24.574 Contracture, right foot; M24.575 Contracture, left foot; M24.542 Contracture, left hand; M24.541 Contracture, right hand; Y83.8 Other surgical procedures as the cause of abnormal reaction of the patient, or of later complication, without mention of misadventure at the time of the procedure; Y82.8 Other medical devices associated with adverse incidents; Y92.129 Unspecified place in nursing home as the place of occurrence of the external cause
CPT/HCPCS: 31720; 36415; 36600; 71045-TC; 80048-TC; 80053-TC; 80061-TC; 80076-TC; 80202-TC; 81001; 82803-TC; 82962-TC; 83540-TC; 83605-TC; 83735-TC; 83880; 84100-TC; 84153-TC; 84443-TC; 84484-TC; 85025-TC; 85378-TC; 87040-TC; 87070-TC; 87081-TC; 87086-TC; 92526; 92611-TC; 94002-TC; 94003-TC; 94640-TC; 94799-TC; 99082-TC; A4216; A4217; A6253; A6403; C9113; C9803; G0378; J1450; J1650; J2185; J2543; J3370; J3475; J3480; J3490; J7030; J7040; J7042; J7050; J7060; Q9967; U0003

== ENCOUNTER 2020-12-06 15:43 | Inpatient (IN) | payer MEDICARE, OTHER ==
[~2020-12-06] VITALS: Ht 172.7 cm; Wt 63.5 kg
[~2020-12-06 15:43] MED LIST: BACL10TA PO; GABA100C PO; HYDR-4303 PO; MELA3TAB41 PO; OXCA150T5 PO; QUET100T PO; ROPI2TAB7 PO; SERT50TA PO; TAMS-12 PO
[2020-12-06] MEDS ORDERED: IV NS 0.9% 1,000 ML BAG IV ONE (16:00)
--- NOTE | 2020-12-06 16:05 | NUR ---
BIBRA FROM SNF TO ER BED 5. PT IS ALTERED. O2 O2 VIA NON REBREATHER SATTING @ 99%. BED BOUND. BROUGHT IN FOR REPORTED DESATURATION NOTED IN THE LOW 90S AT THE FACILITY. PT IS BASELINE O2 USER @ 5LPM VIA NC. WAS AT THE BEDSIDE FOR EVAL. ORDERS RECEIVED, NOTED AND CARRIED OUT. IV LINE ALREADY ESTABLISHED ON L HAND 20G, BLOOD DRAWN BY PHLEB. WILL CONTINUE TO MONITOR
[2020-12-06 16:21] LABS: BASOPHILS # (AUTO) 0.1 /CMM (0.0-0.2); BASOPHILS % (AUTO) 0.8 % (0.0-2.0); EOSINOPHILS % (AUTO) 3.5 % (0.0-6.0); HEMATOCRIT 23 % (39-51); HEMOGLOBIN 7.1 g/dL (13.5-17.5); LYMPHOCYTES % (AUTO) 15.4 % (20.0-44.0); MEAN CORPUSCULAR HGB CONC 32 g/dl (31.0-36.0); MEAN CORPUSCULAR VOLUME 85 fL (80-96); MONOCYTES # (AUTO) 0.7 /CMM (0.1-1.30); NEUTROPHILS % (AUTO) 75.3 % (43.0-81.0); PLATELET COUNT (AUTO) 526 /CMM (150-450); RED BLOOD CELL COUNT(AUTO) 2.66 MIL/uL (4.5-6.0); WHITE BLOOD COUNT (AUTO) 13.3 K/uL (4.3-11.0)
[2020-12-06] MEDS ORDERED: ACET-868 PO (16:33)
[2020-12-06] MEDS ORDERED: SENN-261 PO (16:33)
[2020-12-06] MEDS ORDERED: CRAN425C6 PO (16:33)
[2020-12-06] MEDS ORDERED: AMIN30LI2 PO (16:33)
[2020-12-06] MEDS ORDERED: QUET100T PO (16:33)
[2020-12-06] MEDS ORDERED: ZINC220C6 PO (16:33)
[2020-12-06] MEDS ORDERED: NA P133E RC (16:33)
[2020-12-06] MEDS ORDERED: BISA10SU11 RC (16:33)
[2020-12-06] MEDS ORDERED: OMEG1CAP PO (16:33)
[2020-12-06] MEDS ORDERED: MAGN400O6 PO (16:33)
[2020-12-06] MEDS ORDERED: ASCO-352 PO (16:33)
[2020-12-06] MEDS ORDERED: HYDR-4209 PO (16:33)
[2020-12-06] MEDS ORDERED: MULT-447 PO (16:33)
[2020-12-06 16:35] LABS: CARBON DIOXIDE 32 mmol/L (21-32); CHLORIDE 105 mmol/L (98-107); CREATININE 0.7 mg/dL (0.6-1.3); GLUCOSE 109 mg/dL (74-106); POTASSIUM 2.9 mmol/L (3.5-5.1); SODIUM SERUM 144 mmol/L (136-145); UREA NITROGEN, BLOOD 10 mg/dL (7-18)
[2020-12-06 16:36] LABS: ABG BASE EXCESS 6.4 mmol/L; ABG OXYGEN SATURATION 93.3 % (92.0-98.5); ABG PCO2 49.8 mmHg (35.0-45.0); ABG PO2 76.2 mmHg (75.0-100.0); AaDO2 115.5 mmHg; COHb 0.3 % (0.5-1.5); MetHb 0.8 % (0.0-1.5); O2Hb 92.3 % (94.0-97.0); SITE, ABG Left Radial; VENT MODE, BG VENTURI MASK 35%
[2020-12-06 16:37] LABS: CALCIUM, SERUM 7.8 mg/dL (8.5-10.1)
[2020-12-06 16:53] LABS: ALANINE AMINOTRANSFERASE 11 U/L (12-78); ALBUMIN 1.9 g/dL (3.4-5.0); ALKALINE PHOSPHATASE 79 U/L (46-116); ASPARTATE AMINOTRANSFERASE 17 U/L (15-37); BILIRUBIN,DIRECT 0.1 mg/dL (0.0-0.2); BILIRUBIN,TOTAL 0.2 mg/dL (0.2-1.0); TOTAL PROTEIN, SERUM 6.8 g/dL (6.4-8.2)
--- NOTE | 2020-12-06 16:58 | NUR ---
PAGED [facility].
[2020-12-06] MEDS ORDERED: VANCOMYCIN 1 GM in IV D5W 250 ML IV ONE (17:00)
[2020-12-06] MEDS ORDERED: PIPERACILLIN /TAZOBACTAM 3.375 G in IV D5W 50 ML IV ONE (17:00)
[2020-12-06 17:26] LABS: BILIRUBIN,URINE Negative (NEGATIVE); COLOR,URINE YELLOW (YELLOW); LEUKOCYTE ESTERASE ,URINE Trace (NEGATIVE); NITRITE, URINE Negative (NEGATIVE); PROTEIN,URINE 100 mg/dl (NEGATIVE); UGLUCOSE Negative (NEGATIVE); UROBILINOGEN,URINE 0.2 EU/dL (0.2)
[2020-12-06 17:36] LABS: BACTERIA,URINE Few /HPF (None Seen); SQUAMOUS EPITHELIAL CELL,UR Few /HPF (None Seen)
[2020-12-06] MEDS ORDERED: PIPERACILLIN /TAZOBACTAM 3.375 G VIAL IV ONE (17:42)
[2020-12-06] MEDS ORDERED: VANCOMYCIN 1 GM VIAL ONE (17:42)
[2020-12-06] MEDS ORDERED: MAG HYDROX/AL HYDROX/SIMETH 30 ML UDC PO PRN (19:00)
[2020-12-06] MEDS ORDERED: ALBUTEROL SULFATE INH 18 GM HFA.AER.AD IH PRN (19:00)
[2020-12-06] MEDS ORDERED: BISACODYL SUPP (10 MG) 10 MG/SUPP.RECT SUPP.RECT RC PRN (19:00)
[2020-12-06] MEDS ORDERED: Z GUARD REMEDY 2 OZ OINT TP PRN (19:00)
[2020-12-06] MEDS ORDERED: ACETAMINOPHEN 325 MG TABLET PO PRN (19:00)
[2020-12-06] MEDS ORDERED: MAGNESIUM HYDROXIDE 30 ML UDC PO PRN (19:00)
[2020-12-06] MEDS ORDERED: ONDANSETRON HCL/PF 4 MG/2 ML VIAL IVP PRN (19:00)
--- NOTE | 2020-12-06 19:55 | NUR ---
REPORT GIVEN TO JOCELYN BUSTAMANTE FOR CHRIS
[2020-12-06] MEDS ORDERED: IPRATROPIUM NEB FS 0.5 MG/2.5 ML AMPUL.NEB NEB ONE (20:00)
[2020-12-06] MEDS ORDERED: ALBUTEROL FS 2.5 MG/0.5 ML VIAL.NEB NEB PRN (20:00)
--- NOTE | 2020-12-06 20:09 | NUR ---
PT TRANSPORTED TO UNIT ON [facility] WITH EMT AND RN AT BEDSIDE W/ ACLS PROTOCOL. NAD NOTED DURING TREANSPORT.
[2020-12-06 20:30] VITALS: BP 119/93
[2020-12-06] MEDS ORDERED: ENOXAPARIN SODIUM 40 MG/0.4 ML DISP.SYRIN SQ SCH (21:00)
[2020-12-06] MEDS: BACLOFEN (10 MG) 10 MG TABLET PO SCH (21:00)
[2020-12-06 21:24] LABS: ABG BASE EXCESS 3.4 mmol/L; ABG OXYGEN SATURATION 87.3 % (92.0-98.5); ABG PCO2 47.5 mmHg (35.0-45.0); ABG PH 7.399 (7.350-7.450); ABG PO2 54.8 mmHg (75.0-100.0); AaDO2 139.5 mmHg; COHb 0.3 % (0.5-1.5); MetHb 0.1 % (0.0-1.5); SITE, ABG Left Radial; VENT MODE, BG VENTURI MASK 35%
[2020-12-06] MEDS: TAMSULOSIN 0.4 MG CAP.SR.24H PO SCH (21:49)
[2020-12-06] MEDS: SENNOSIDES 8.6 MG TABLET PO SCH (21:49)
[2020-12-06] MEDS: IV NS 0.9% 1,000 ML IV PRN (22:41)
[2020-12-07] VITALS (9 sets, daily range): BP systolic 110–126; BP diastolic 55–72
[2020-12-07] MEDS ORDERED: PIPERACILLIN /TAZOBACTAM 4.5 G in IV D5W 50 ML IV SCH
[2020-12-07] MEDS ORDERED: PIPERACILLIN /TAZOBACTAM 3.375 G VIAL IV ONE ×2 (00:47→05:09)
[2020-12-07] MEDS: ZOSYN IVPB 3.375 G in IV D5W 50ml IV SCH ×4 (01:01→17:02)
[2020-12-07] MEDS: BACLOFEN (10 MG) 10 MG TABLET PO SCH ×3 (04:19→21:00)
[2020-12-07 04:31] LABS: BASOPHILS # (AUTO) 0.1 /CMM (0.0-0.2); BASOPHILS % (AUTO) 0.5 % (0.0-2.0); LYMPHOCYTES # (AUTO) 2.1 /CMM (0.8-4.8); LYMPHOCYTES % (AUTO) 14.1 % (20.0-44.0); MEAN CORPUSCULAR HGB CONC 32 g/dl (31.0-36.0); MEAN CORPUSCULAR VOLUME 85 fL (80-96); MONOCYTES # (AUTO) 0.7 /CMM (0.1-1.30); MONOCYTES % (AUTO) 4.7 % (2.0-12.0); NEUTROPHILS # (AUTO) 11.4 /CMM (1.8-8.9); NEUTROPHILS % (AUTO) 75.7 % (43.0-81.0); PLATELET COUNT (AUTO) 456 /CMM (150-450); RED BLOOD CELL COUNT(AUTO) 2.32 MIL/uL (4.5-6.0); WHITE BLOOD COUNT (AUTO) 15.1 K/uL (4.3-11.0)
[2020-12-07 04:52] LABS: ALBUMIN 1.7 g/dL (3.4-5.0); BILIRUBIN,TOTAL 0.3 mg/dL (0.2-1.0); CALCIUM, SERUM 6.6 mg/dL (8.5-10.1); CREATININE 0.6 mg/dL (0.6-1.3); PHOSPHORUS 2.3 mg/dL (2.5-4.9); TOTAL PROTEIN, SERUM 6.1 g/dL (6.4-8.2)
[2020-12-07 04:57] LABS: HEMATOCRIT 20 % (39-51); HEMOGLOBIN 6.3 g/dL (13.5-17.5)
[2020-12-07 04:58] LABS: MAGNESIUM 0.9 mg/dL (1.8-2.4); POTASSIUM 2.5 mmol/L (3.5-5.1)
--- NOTE | 2020-12-07 05:07 | NUR ---
RECEIVED CRITICALS THIS AM K 2.9, HGB, 6.2, AND MG OF 0.9. PAGED BARB. AWAITING ORDERS.
[2020-12-07] MEDS ORDERED: VANCOMYCIN 1 GM VIAL ONE (05:08)
[2020-12-07] MEDS: Magnesium 1GM/D5W 100ML PREMIX 100 ML IV SCH ×4 (06:21→09:19)
[2020-12-07] MEDS: POTASSIUM CL. PREMIX PERIPHER. 50 ML IV SCH ×8 (06:24→12:26)
--- NOTE | 2020-12-07 06:52 | NUR ---
called patients Steffanie Castrejon to receive consent for blood transfusion. No answer left message to call back.
[2020-12-07] MEDS: VANCOMYCIN 0.75 GM in IV D5W 250 ML IV SCH ×2 (07:41→18:00)
--- NOTE | 2020-12-07 08:12 | NUR ---
WOUND CARE CONSULT: PT PRESENTS WITH SACRAL STAGE 4 ULCER AND RT FOOT/ANKLE DRY WOUNDS, PRESENT ON ADMISSION. PT NOTED TO HAVE COLOSTOMY. DR FERRER AND DR LOBO NOTIFIED OF SURGICAL AND DPM CONSULTS. RECOMMENDATIONS MADE FOR SKIN PROTECTION. DISCUSSED WITH NURSING STAFF. PT IS ON [facility] BED. IN AGREEMENT WITH PLAN OF CARE. Addendum: 12/07/20 at 0813 by CHEPE FRANCE WNDNU Amended: Links added.
[2020-12-07] MEDS: QUETIAPINE FUMARATE 100 MG TABLET PO SCH ×2 (09:00→16:36)
[2020-12-07] MEDS: ASCORBIC ACID 500 MG TABLET PO SCH (09:00)
[2020-12-07] MEDS: SERTRALINE HCL 50 MG TABLET PO SCH (09:00)
[2020-12-07] MEDS: ropiniROLE 0.5 MG TABLET PO SCH ×2 (09:00→16:36)
[2020-12-07] MEDS: GABAPENTIN 100 MG CAPSULE PO SCH ×3 (09:00→16:36)
[2020-12-07] MEDS: OXCARBAZEPINE 150 MG TABLET PO SCH ×2 (09:00→16:37)
--- NOTE | 2020-12-07 09:29 | NUR ---
RN OPENING NOTES RECEIVED PATIENT AWAKE ALERT AND APPEARS CONFUSED. SATURATING 99% ON VENTURI 9L WITH 40% FIO2. SR 62 ON TELEMETRY. COLOSTOMY NOTED AND DASILVA DRAINING BY GRAVITY. PERIPHERAL LINES ON LEFT HAND AND RIGHT FOOT. KCL AND MGSO4 INFUSIONS IN PROGRESS. SAFETY CHECKS IN PLACE. WILL CONTINUE TO MONITOR.
--- NOTE | 2020-12-07 09:36 | NUR ---
RN NOTES PO MEDS WITHHELD PENDING SWALLOW EVALUATION. KEPT NPO AT THIS TIME.
[2020-12-07 09:45] LABS: EOSINOPHILS % (MANUAL) 6 % (0-4); LYMPHOCYTES % (MANUAL) 11 % (16-48); MONOCYTES % (MANUAL) 5 % (0-11.0); NEUTROPHILS % (MANUAL) 78 (42-76)
[2020-12-07] MEDS ORDERED: POTASSIUM CHLORIDE 20 MEQ TAB.PRT.SR PO ONE (11:30)
[2020-12-07] MEDS ORDERED: Magnesium 1GM/D5W 100ML PREMIX 100 ML IV SCH (11:30)
[2020-12-07] MEDS: PANTOPRAZOLE 40 MG VIAL IV SCH (11:43)
[2020-12-07] MEDS: POTASSIUM PHOSPHATE MM 7.5 MMOL in IV NS 0.9% 100 ML IV SCH ×2 (14:24→18:39)
--- NOTE | 2020-12-07 15:14 | NUR ---
RN NOTE PATIENT COMPLETED 1 UNIT OF PRBC WITH NO ADVERSE REACTIONS.
[2020-12-07 16:26] LABS: OCCULT BLOOD STOOL NEGATIVE (NEGATIVE)
--- NOTE | 2020-12-07 16:32 | NUR ---
RN NOTE CALL RECEIVED FROM [employer] [facility]. PATIENT RESULTED (+) MRSA RIGHT NARE. BACTROBAN ORDERED.
--- NOTE | 2020-12-07 18:00 | NUR ---
RN NOTE TELEPHONE CONSENT OBTAINED FROM JOSE WU FOR PATIENT'S SERIAL DEBRIDEMENT OF SACRUM.
[2020-12-07] MEDS: DAKINS QUARTER STRENGTH (0.125%) 480 ML BOTTLE TOP SCH (18:11)
--- NOTE | 2020-12-07 18:20 | NUR ---
RN NOTE VANC TROUGH 23. PER PHARMACY, NEXT DOSE HAS BEEN ADJUSTED, AND PLS DO NOT WITHHOLD MIDNIGHT DOSE OF VANCOMYCIN.
--- NOTE | 2020-12-07 18:32 | NUR ---
RN CLOSING NOTES PATIENT REMAINS AWAKE ALERT AND APPEARS CONFUSED. UPSET MOST OF THE DAY ABOUT BEING KEPT NPO. SATURATING 98% ON VENTURI 9L WITH 40% FIO2. SR 60'S WITH PAC'S ON TELEMETRY. COLOSTOMY EMPTIED THICK SCANT STOOL, AND DASILVA DRAINED 1,050MLS THIS SHIFT. PERIPHERAL LINES ON LEFT HAND AND RIGHT FOOT. MIDLINE AT LEFT UPPER ARM WITH N/S AT 75 ML/HR AND POTASSIUM PHOSPHATE AT 35 ML/HR. SAFETY CHECKS IN PLACE. WILL ENDORSE TO NIGHT RN FOR CONTINUITY OF CARE.
--- NOTE | 2020-12-07 19:00 | NUR ---
RN NOTE RECEIVED PATIENT IN BED, CONFUSED, IN NO S/SX OF ACUTE DISTRESS AT THIS TIME. BREATHING EVEN AND UNLABORED, SATURATION AT 100% ON 40% FIO2 VIA VENTURI MASK, SR ON THE MONITOR, HR IS 70. NOTED IV SITE AT L HAND 20G, R FOOT 20G, AND CHERY MIDLINE 18G, ALL HUBS PATENT AND FLUSHING WELL, NO S/S OF INFECTION OR INFILTRATION. DASILVA CATHETER CONNECTED TO URINE BAG DRAINING TO A CLEAR, YELLOW OUTPUT. SAFETY MEASURES IMPLEMENTED. PATIENT BED ALARM IS ON. HEAD OF BED ELEVATED. BED IS LOCKED, IN LOWEST POSITION AND SIDE RAILS UP. CALL LIGHT WITHIN REACH OF THE PATIENT. WILL CONTINUE TO MONITOR AND REASSESS FOR ANY CHANGES.
--- NOTE | 2020-12-07 20:00 | NUR ---
RN NOTE TELEPHONE CALL TO LAB, SPOKE WITH MIKE, WAS ADVISED THAT 1800 DOSE WAS WITHHELD DUE TO VANCO TROUGH OF 23, BUT OK TO ADMINISTER ADJUSTED DOSE AT 12/08/2020 0000.
[2020-12-07] MEDS: IV NS 0.9% 1,000 ML IV PRN (20:09)
[2020-12-07] MEDS: TAMSULOSIN 0.4 MG CAP.SR.24H PO SCH (21:17)
[2020-12-07] MEDS: SENNOSIDES 8.6 MG TABLET PO SCH (21:17)
[2020-12-08] VITALS: BP 131/57
[2020-12-08] MEDS ORDERED: VANCOMYCIN 1 GM in IV D5W 250 ML IV SCH
[2020-12-08] MEDS: ZOSYN IVPB 3.375 G in IV D5W 50ml IV SCH ×5 (00:06→23:57)
[2020-12-08 04:00] VITALS: BP 134/61
[2020-12-08] MEDS: BACLOFEN (10 MG) 10 MG TABLET PO SCH ×3 (04:27→21:57)
[2020-12-08] MEDS: VANCOMYCIN 0.75 GM in IV D5W 250 ML IV SCH (06:03)
[2020-12-08 06:31] LABS: BASOPHILS # (AUTO) 0.1 K/uL (0.0-0.2); BASOPHILS % (AUTO) 0.9 % (0.0-2.0); EOSINOPHILS % (AUTO) 4.4 % (0.0-6.0); HEMATOCRIT 25 % (39-51); HEMOGLOBIN 8.2 g/dL (13.5-17.5); LYMPHOCYTES % (AUTO) 14.8 % (20.0-44.0); MEAN CORPUSCULAR HGB CONC 32 g/dl (31.0-36.0); MEAN CORPUSCULAR VOLUME 85 fL (80-96); MONOCYTES # (AUTO) 0.8 K/uL (0.1-1.30); MONOCYTES % (AUTO) 6.1 % (2.0-12.0); NEUTROPHILS # (AUTO) 9.9 K/uL (1.8-8.9); NEUTROPHILS % (AUTO) 73.8 % (43.0-81.0); PLATELET COUNT (AUTO) 522 K/uL (150-450); WHITE BLOOD COUNT (AUTO) 13.4 K/uL (4.3-11.0)
[2020-12-08 07:13] LABS: CALCIUM, SERUM 7.8 mg/dL (8.5-10.1); CREATININE 0.7 mg/dL (0.6-1.3); POTASSIUM 3.7 mmol/L (3.5-5.1)
--- NOTE | 2020-12-08 08:01 | NUR ---
RN NOTE RECEIVED PATIENT IN BED, CONFUSED, IN NO S/S OF ACUTE DISTRESS AT THIS TIME. BREATHING EVEN AND UNLABORED, SATURATION AT 100% ON 40% FIO2 VIA VENTURI MASK, SR ON THE MONITOR, HR IS 62 NOTED IV SITE AT L HAND 20G, , AND CHERY MIDLINE 18G, FLUSHING WELL, NO S/S OF INFECTION OR INFILTRATION. DASILVA CATHETER CONNECTED TO URINE BAG DRAINING TO A CLEAR, YELLOW OUTPUT. SAFETY MEASURES IMPLEMENTED. PATIENT BED ALARM IS ON. HEAD OF BED ELEVATED. BED IS LOCKED, IN LOWEST POSITION AND SIDE RAILS UP. CALL LIGHT WITHIN REACH OF THE PATIENT. WILL CONTINUE TO MONITOR , BED IN LOWEST AND LOCKED POSITION ,CALL LIGHT WITHIN REACH
[2020-12-08 08:07] VITALS: BP 132/51
[2020-12-08] MEDS: OXCARBAZEPINE 150 MG TABLET PO SCH ×2 (09:00→16:29)
[2020-12-08] MEDS: QUETIAPINE FUMARATE 100 MG TABLET PO SCH ×2 (09:00→16:29)
[2020-12-08] MEDS: ropiniROLE 0.5 MG TABLET PO SCH ×2 (09:00→16:29)
[2020-12-08] MEDS: SERTRALINE HCL 50 MG TABLET PO SCH (09:00)
[2020-12-08] MEDS: GABAPENTIN 100 MG CAPSULE PO SCH ×3 (09:00→16:29)
[2020-12-08] MEDS: ASCORBIC ACID 500 MG TABLET PO SCH (09:00)
--- NOTE | 2020-12-08 09:17 | NUR ---
REGISTERED NURSE FLOAT POOL NOTE SEEN BY DR BLANCO JIMENEZ TO DO VIDEO EVAL STILL NPO AT THIS TIME
[2020-12-08] MEDS: PANTOPRAZOLE 40 MG VIAL IV SCH (09:26)
[2020-12-08] MEDS: DAKINS QUARTER STRENGTH (0.125%) 480 ML BOTTLE TOP SCH (09:28)
[2020-12-08] MEDS: MUPIROCIN OINT 2% 22 GM TUBE NS SCH ×2 (09:38→21:56)
[2020-12-08] MEDS ORDERED: BARIUM SULFATE 240 ML ORAL.SUSP PO ONE (10:15)
[2020-12-08] MEDS ORDERED: BARIUM SULFATE 148 GM SUSP.RECON PO ONE (10:15)
[2020-12-08] MEDS: IV NS 0.9% 1,000 ML IV PRN ×2 (10:48→22:04)
--- NOTE | 2020-12-08 11:06 | NUR ---
RN NOTE PT. HAS RETURNED FROM VIDEO SWALLOW EVAL. PER SPEECH THERAPIST OKAY TO RESUME PUREE DIET.
[2020-12-08 12:00] VITALS: BP 110/56
--- NOTE | 2020-12-08 13:00 | NUR ---
EDWIN RN NOTE HAVING LUNCH , ABLE TO EAT LUNCH PUREE DIET 50% ,FED BY SUBSTATION SUPERVISOR , ALL NEEDS ATTENDED WILL CONT TO MONITOR
[2020-12-08 16:00] VITALS: BP 124/57
--- NOTE | 2020-12-08 16:00 | NUR ---
MS RN NOTE ROUNDS MADE , ALL NEEDS ATTENDED WITH 2L NC NO SOB NOTED ,SATURATION 99% ,ON IVF ORDERED,KEEP CLEAN DRY , TURN REPOSITION Q2 HOUR , CALL LIGHT WITHIN REACH
--- NOTE | 2020-12-08 18:54 | NUR ---
EDWIN RN NOTE PATIENT IN BED, ON 2L NC, NO SOB NOTED ,ON IVF ORDERED VIA CHERY MID LINE , BED IN LOWEST AND LOCKED POSITION, CALL LIGHT WITHIN REACH , ,WILL CONT TO MONITOR CLOSELY
--- NOTE | 2020-12-08 19:00 | NUR ---
RN NOTE RECEIVED PATIENT IN BED, CONFUSED, IN NO S/SX OF ACUTE DISTRESS AT THIS TIME. BREATHING EVEN AND UNLABORED, SATURATION AT 98% ON 2L VIA NC, SR ON THE MONITOR, HR IS 66. NOTED IV SITE AT L HAND 20G, AND CHERY MIDLINE 18G, ALL HUBS PATENT AND FLUSHING WELL, NO S/S OF INFECTION OR INFILTRATION. DASILVA CATHETER CONNECTED TO URINE BAG DRAINING TO A CLEAR, YELLOW OUTPUT. ASPIRATION PRECAUTIONS MAINTAINED. SAFETY MEASURES IMPLEMENTED. PATIENT BED ALARM IS ON. HEAD OF BED ELEVATED. BED IS LOCKED, IN LOWEST POSITION AND SIDE RAILS UP. CALL LIGHT WITHIN REACH OF THE PATIENT. WILL CONTINUE TO MONITOR AND REASSESS FOR ANY CHANGES.
[2020-12-08 20:00] VITALS: BP 103/58
--- NOTE | 2020-12-08 20:00 | NUR ---
RN NOTE NOTED BP 82/42, PLACED PATIENT ON [place], BP RECHECKED AND REVEALED 82/45, 82/48. DR DAY WAS NOTIFIED, ORDER RECEIVED FOR NS 500 ML BOLUS X 1. MACHINE SPREADER CLARIBEL TIPTON. BP RECHECKED AND REVEALED 103/58. WILL CONTINUE TO MONITOR.
[2020-12-08] MEDS ORDERED: IV NS 0.9% 500 ML IV ONE (21:30)
[2020-12-08] MEDS: SENNOSIDES 8.6 MG TABLET PO SCH (21:57)
[2020-12-08] MEDS: TAMSULOSIN 0.4 MG CAP.SR.24H PO SCH (21:57)
--- NOTE | 2020-12-08 23:30 | NUR ---
RN NOTE NOTED PATIENT COUGHING ACCOMPANIED BY GURGLING SOUND ON EXPIRATION, RT PATO NOTIFIED, PT WAS SUCTIONED, SATURATION SUSTAINED AT 97-98%, PT BREATHING BETTER. WILL CONTINUE TO MONITOR.
[2020-12-09] VITALS: BP 96/55
[2020-12-09 04:00] VITALS: BP 102/54
[2020-12-09] MEDS: BACLOFEN (10 MG) 10 MG TABLET PO SCH ×3 (05:17→22:15)
[2020-12-09] MEDS: ZOSYN IVPB 3.375 G in IV D5W 50ml IV SCH ×4 (05:17→23:15)
[2020-12-09 06:09] LABS: CALCIUM, SERUM 7.8 mg/dL (8.5-10.1); CREATININE 0.9 mg/dL (0.6-1.3); POTASSIUM 3.3 mmol/L (3.5-5.1)
--- NOTE | 2020-12-09 07:20 | NUR ---
RN OPENING NOTE RECEIVED PATIENT IN BED, CONFUSED A/O X1, IN NO S/SX OF ACUTE DISTRESS AT THIS TIME. BREATHING EVEN AND UNLABORED, ON 2L VIA NC NOTED IV SITE AT L HAND 20G, AND CHERY MIDLINE 18G, INTACT, PATENT AND FLUSHING WELL, NO S/S OF INFECTION OR INFILTRATION. DASILVA CATHETER CONNECTED TO URINE BAG DRAINING TO A CLEAR, YELLOW OUTPUT. OSTOMY BAG DRAINING WELL, . ASPIRATION PRECAUTIONS MAINTAINED. SAFETY MEASURES IMPLEMENTED. PATIENT BED ALARM IS ON. HEAD OF BED ELEVATED. BED IS LOCKED, IN LOWEST POSITION AND SIDE RAILS UP. CALL LIGHT WITHIN REACH OF THE PATIENT. WILL CONTINUE TO MONITOR
[2020-12-09 08:00] VITALS: BP 126/56
[2020-12-09] MEDS ORDERED: VANCOMYCIN 1 GM in IV D5W 250 ML IV SCH (08:00)
[2020-12-09] MEDS: PANTOPRAZOLE 40 MG VIAL IV SCH (08:17)
[2020-12-09] MEDS: GABAPENTIN 100 MG CAPSULE PO SCH ×3 (08:18→17:15)
[2020-12-09] MEDS: ASCORBIC ACID 500 MG TABLET PO SCH (08:18)
[2020-12-09] MEDS: ropiniROLE 0.5 MG TABLET PO SCH ×2 (08:19→17:15)
[2020-12-09] MEDS: SERTRALINE HCL 50 MG TABLET PO SCH (08:19)
[2020-12-09] MEDS: QUETIAPINE FUMARATE 100 MG TABLET PO SCH ×2 (08:19→17:15)
[2020-12-09] MEDS: OXCARBAZEPINE 150 MG TABLET PO SCH ×2 (08:19→17:15)
[2020-12-09] MEDS: DAKINS QUARTER STRENGTH (0.125%) 480 ML BOTTLE TOP SCH (08:20)
[2020-12-09] MEDS: MUPIROCIN OINT 2% 22 GM TUBE NS SCH ×2 (08:20→22:19)
[2020-12-09] MEDS ORDERED: POTASSIUM CHLORIDE 20 MEQ TAB.PRT.SR PO SCH (10:00)
[2020-12-09] MEDS: FLUCONAZOLE IN NS 100 MG in PREMIX 1 EA IV SCH (11:19)
[2020-12-09 12:00] VITALS: BP 105/47
[2020-12-09] MEDS ORDERED: LIDOCAINE 1%-EPI 1:100,000 50 ML VIAL IJ STA (12:01)
--- NOTE | 2020-12-09 14:00 | NUR ---
RN NOTES DEBRIDEMENT OF THE SACRAL WOUND DONE BY RAINA BRADFORD AT BEDSIDE. LIDOCAINE 20ML USED. DRESSING DRY AND INTACT.
[2020-12-09] MEDS: IV NS 0.9% 1,000 ML IV PRN (15:25)
[2020-12-09 16:00] VITALS: BP 130/54
[2020-12-09] MEDS: ENSURE ENLIVE 237 ML LIQUID (VANILLA) PO SCH (17:27)
--- NOTE | 2020-12-09 18:47 | NUR ---
RN CLOSING NOTES NO SIGNIFICANT CHANGES THROUGHOUT THE SHIFT. NO SOB OR ANY S/S OF RESPIRATORY DISTRESS. NO PAIN REPORTED AT THIS TIME. ALL DUE MEDS GIVEN. NEEDS ATTENDED. KEPT CLEAN AND DRY. SAFETY MEASURES STILL IN PLACE. WILL ENDORSE TO NIGHT RN FOR CHRIS.
[2020-12-09 20:00] VITALS: BP_SYST 141; BP_DIAS 47; BP_DIAS 77
[2020-12-09] MEDS: SENNOSIDES 8.6 MG TABLET PO SCH (22:15)
[2020-12-09] MEDS: TAMSULOSIN 0.4 MG CAP.SR.24H PO SCH (22:15)
[2020-12-10] VITALS (7 sets, daily range): BP systolic 93–136; BP diastolic 47–69
[2020-12-10] MEDS: BACLOFEN (10 MG) 10 MG TABLET PO SCH ×3 (05:38→21:54)
[2020-12-10] MEDS: ZOSYN IVPB 3.375 G in IV D5W 50ml IV SCH ×3 (05:39→18:15)
[2020-12-10] MEDS: IV NS 0.9% 1,000 ML IV PRN ×2 (05:55→22:03)
--- NOTE | 2020-12-10 06:30 | NUR ---
TELE TD: NO SIGNIFICANT CHRIS DURING THE SHIFT. ALERT AND AWAKE. ABLE TO FOLLOW SIMPLE COMMANDS. VS WITHIN PT'S BASELINE. ABLE TO TAKE PO MEDS CRUSHED AND MIXED WT APPLE SAUCE WT THICKENED LIQUIDS. ASPIRATION PRECAUTION NOTED AT ALL TIMES.
[2020-12-10 07:27] LABS: CALCIUM, SERUM 7.9 mg/dL (8.5-10.1); CREATININE 0.8 mg/dL (0.6-1.3); POTASSIUM 3.5 mmol/L (3.5-5.1)
--- NOTE | 2020-12-10 07:30 | NUR ---
RN OPENING NOTE RECEIVED PATIENT IN BED AND ASLEEP. BREATHING EVEN AND UNLABORED, ON 2L VIA NC NOTED IV SITE AT L HAND 20G, AND CHERY MIDLINE 18G, INTACT, PATENT AND FLUSHING WELL, NO S/S OF INFECTION OR INFILTRATION. DASILVA CATHETER CONNECTED TO URINE BAG DRAINING TO A CLEAR, YELLOW OUTPUT. OSTOMY BAG DRAINING WELL, . ASPIRATION PRECAUTIONS MAINTAINED, PURE AND THICK LIQUID MEALS TO BE IMPLEMENTED THROUGHOUT SHIFT. SAFETY MEASURES IMPLEMENTED. PATIENT BED ALARM IS ON. HEAD OF BED ELEVATED. BED IS LOCKED, IN LOWEST POSITION AND SIDE RAILS UP. CALL LIGHT WITHIN REACH OF THE PATIENT. NO ACUTE DISTRESS NOTED AT THIS TIME.
[2020-12-10] MEDS ORDERED: VANCOMYCIN 1 GM in IV D5W 250 ML IV SCH (08:00)
--- NOTE | 2020-12-10 08:00 | NUR ---
RN NOTE VANCOMYCIN 0800 1G DOSE HELD DUE TO TROUGH OF 26.
[2020-12-10] MEDS: QUETIAPINE FUMARATE 100 MG TABLET PO SCH ×2 (08:46→17:09)
[2020-12-10] MEDS: ASCORBIC ACID 500 MG TABLET PO SCH (08:46)
[2020-12-10] MEDS: ropiniROLE 0.5 MG TABLET PO SCH ×2 (08:46→17:09)
[2020-12-10] MEDS: SERTRALINE HCL 50 MG TABLET PO SCH (08:46)
[2020-12-10] MEDS: OXCARBAZEPINE 150 MG TABLET PO SCH ×2 (08:47→17:09)
[2020-12-10] MEDS: GABAPENTIN 100 MG CAPSULE PO SCH ×3 (08:47→17:09)
[2020-12-10] MEDS: PANTOPRAZOLE 40 MG TABLET.DR PO SCH (08:48)
[2020-12-10] MEDS: ENSURE ENLIVE 237 ML LIQUID (VANILLA) PO SCH ×4 (09:00→17:00)
[2020-12-10] MEDS: MUPIROCIN OINT 2% 22 GM TUBE NS SCH ×2 (09:22→22:11)
[2020-12-10] MEDS: FLUCONAZOLE IN NS 100 MG in PREMIX 1 EA IV SCH (11:24)
[2020-12-10] MEDS: DAKINS QUARTER STRENGTH (0.125%) 480 ML BOTTLE TOP SCH (16:28)
--- NOTE | 2020-12-10 18:37 | NUR ---
RN CLOSING NOTES PATIENT REMAINS AWAKE AND CONFUSED, A/O X 1-2. ASPIRATION PRECAUTIONS MAINTAINED THROUGHOUT FEEDS, ON PUREE THICK LIQUIDS. SUCTIONING COMPLETED NEEDED R/T PRODUCTIVE THIN SPUTUM. SATURATIONS ABOVE 95% ON NC 3L. SR 60'S ON TELEMETRY. COLOSTOMY STOOL PRODUCTION 50-60 ML. DASILVA CATHETER PATENT AND DRAINING LIGHT YELLOW URINE, 750 ML URINE EMPTIED THROUGH SHIFT. PERIPHERAL LINES ON LEFT HAND SALINE LOCKED AND MIDLINE AT LEFT UPPER ARM WITH N/S AT 75 ML/HR CLEAN AND PATENT. MEDICATIONS AND IV FLUIDS TOLERATED WELL. SAFETY PRECAUTIONS IN PLACE. PATIENT CURRENTLY RESTING IN BED. BED LOWEST POSITION, CALL LIGHT WITHIN REACH, HOB 45 DEGREES AND BED ALARM ON. NO ACUTE DISTRESS NOTED AT THIS TIME. WILL ENDORSE CONTINUITY OF CARE TO POTATO CHIP PROCESSING SUPERVISOR RN.
[2020-12-10] MEDS: TAMSULOSIN 0.4 MG CAP.SR.24H PO SCH (21:54)
[2020-12-10] MEDS: SENNOSIDES 8.6 MG TABLET PO SCH (22:04)
[2020-12-11] VITALS: BP 123/59
[2020-12-11] MEDS: ZOSYN IVPB 3.375 G in IV D5W 50ml IV SCH ×3 (00:30→11:03)
[2020-12-11 04:00] VITALS: BP 132/60
[2020-12-11] MEDS: BACLOFEN (10 MG) 10 MG TABLET PO SCH ×2 (06:14→12:23)
--- NOTE | 2020-12-11 06:18 | NUR ---
RN notes In bed resting comfortably with 60 degree up head of the bed. NO physical manifestion of pain or discomfort. Noted to have large amount of sputum, thick yellowish. No significant change of condition. Will endorse to next shift for continuity of care.
[2020-12-11 07:28] LABS: CALCIUM, SERUM 7.8 mg/dL (8.5-10.1); CREATININE 0.7 mg/dL (0.6-1.3)
--- NOTE | 2020-12-11 07:59 | NUR ---
PHARMACIST HELPER NOTE PATIENT IN BED ALERT AWAKE , ON TELE MONITOR,SR ,ON2 L NC NO SOB NOTED AT THIS TIME,BED IN LOWEST AND LOCKED POSITION ,CALL LIGHT WITHIN REACH , WILL CONT TO MONITOR
[2020-12-11 08:00] VITALS: BP 145/55
[2020-12-11] MEDS: QUETIAPINE FUMARATE 100 MG TABLET PO SCH (08:52)
[2020-12-11] MEDS: GABAPENTIN 100 MG CAPSULE PO SCH ×2 (08:52→12:23)
[2020-12-11] MEDS: SERTRALINE HCL 50 MG TABLET PO SCH (08:52)
[2020-12-11] MEDS: PANTOPRAZOLE 40 MG TABLET.DR PO SCH (08:52)
[2020-12-11] MEDS: OXCARBAZEPINE 150 MG TABLET PO SCH (08:53)
[2020-12-11] MEDS: ASCORBIC ACID 500 MG TABLET PO SCH (08:53)
[2020-12-11] MEDS: MUPIROCIN OINT 2% 22 GM TUBE NS SCH (08:53)
[2020-12-11] MEDS: DAKINS QUARTER STRENGTH (0.125%) 480 ML BOTTLE TOP SCH (08:53)
[2020-12-11] MEDS: ENSURE ENLIVE 237 ML LIQUID (VANILLA) PO SCH ×2 (08:54→12:23)
[2020-12-11] MEDS: ropiniROLE 0.5 MG TABLET PO SCH (08:58)
[2020-12-11] MEDS ORDERED: VANCOMYCIN 1 GM in IV D5W 250 ML IV SCH (09:00)
--- NOTE | 2020-12-11 09:30 | NUR ---
BAKER OPERATOR AUTOMATIC NOTE SEEN BY DR SIMEON ,BARBARA TO D\C TO SNF WILL F\U
--- NOTE | 2020-12-11 10:52 | NUR ---
JOSELUIS BANKS NOTE CALLED TO SNF , SPOKE WITH RACHEL BANKS REPORT GIVEN Addendum: 12/11/20 at 1055 by ATUL ESCUDERO RN UNABLE TO CONTACT WITH FAMILY ,NO CONTACT FAMILY AVAILABLE CHECK WITH SALES ENGAGEMENT MANAGER NO FAMILY AVAILABLE
[2020-12-11 12:00] VITALS: BP 107/52
[2020-12-11] MEDS ORDERED: FLUCONAZOLE IN NS 100 MG in PREMIX 1 EA IV SCH (13:00)
[2020-12-11] MEDS ORDERED: POTASSIUM CHLORIDE 20 MEQ POWDER PACKET PO SCH (13:30)
--- NOTE | 2020-12-11 14:10 | NUR ---
telephonic rn note rounds made, turn reposition ,cont on ivf , all needs attended ,will cont to monitor
--- NOTE | 2020-12-11 15:18 | NUR ---
teletype mechanic note ambulance arrived report given
[2020-12-11 16:00] VITALS: BP 121/46
--- NOTE | 2020-12-11 16:05 | NUR ---
HIGH MAN NOTE PATIENT TAKEN TO SNF WITH STABLE CONDITION NO BELONGING NOTED , MID LINE IN PLACE, NOS\S INFECTION ON LT UPPER ARM INSTRUCTION PAPER GIVEN TO AMBULANCE CREW
[2020-12-12] MEDS ORDERED: POTASSIUM CHLORIDE 20 MEQ POWDER PACKET GT SCH (09:00)
== END 2020-12-11 15:12 | DRG 981 ==
LOC: ER 15:43 → TELE-TD 19:38 → TELE1 12-10 09:48 → TELE-TD 12-10 09:48 → UNDODISIN 12-11 13:00 → TELE1 12-11 14:59
PROVIDERS: ADMIT Internal Medicine; ATTEND Internal Medicine
PROC: 30233N1 Transfusion of Nonautologous Red Blood Cells into Peripheral Vein, Percutaneous Approach (ICD-10-PCS; 2020-12-07)
PROC: 05HA33Z Insertion of Infusion Device into Left Brachial Vein, Percutaneous Approach (ICD-10-PCS; 2020-12-07)
PROC: 0KBN0ZZ Excision of Right Hip Muscle, Open Approach (ICD-10-PCS; principal; 2020-12-09)
PROC: 0KBP0ZZ Excision of Left Hip Muscle, Open Approach (ICD-10-PCS; 2020-12-09)
DX: J69.0 Pneumonitis due to inhalation of food and vomit (principal); L89.154 Pressure ulcer of sacral region, stage 4; J96.21 Acute and chronic respiratory failure with hypoxia; R53.2 Functional quadriplegia; G93.41 Metabolic encephalopathy; D68.59 Other primary thrombophilia; J44.0 Chronic obstructive pulmonary disease with (acute) lower respiratory infection; E44.1 Mild protein-calorie malnutrition; G10 Huntington's disease; M46.28 Osteomyelitis of vertebra, sacral and sacrococcygeal region; B37.49 Other urogenital candidiasis; Z86.73 Personal history of transient ischemic attack (TIA), and cerebral infarction without residual deficits; Z98.890 Other specified postprocedural states; F32.9 Major depressive disorder, single episode, unspecified; I10 Essential (primary) hypertension; G25.81 Restless legs syndrome; G20 Parkinson's disease; F20.9 Schizophrenia, unspecified; D64.9 Anemia, unspecified; Z79.899 Other long term (current) drug therapy; N40.0 Benign prostatic hyperplasia without lower urinary tract symptoms; R13.10 Dysphagia, unspecified; Z20.822 Contact with and (suspected) exposure to COVID-19; Z93.3 Colostomy status; Y95 Nosocomial condition; G90.09 Other idiopathic peripheral autonomic neuropathy; E87.6 Hypokalemia; F09 Unspecified mental disorder due to known physiological condition; L89.526 Pressure-induced deep tissue damage of left ankle; L89.896 Pressure-induced deep tissue damage of other site; M62.562 Muscle wasting and atrophy, not elsewhere classified, left lower leg; M62.561 Muscle wasting and atrophy, not elsewhere classified, right lower leg
CPT/HCPCS: 36415; 36600; 71045-TC; 74230-TC; 80048-TC; 80053-TC; 80061-TC; 80076-TC; 80202-TC; 81001; 82272-TC; 82803-TC; 83605-TC; 83735-TC; 83880; 84100-TC; 84484-TC; 85025-TC; 85730-TC; 86850-TC; 87040-TC; 87081-TC; 87086-TC; 92526; 92611-TC; 94799-TC; A4216; A6253; A6403; C9113; C9803; G0378; J1450; J1650; J2543; J3370; J3475; J3480; J3490; J7030; J7040; J7050; J7060; P9016; U0003